=== PATIENT | male | born 1990 | race Caucasian/White ===

== ENCOUNTER 2018-04-28 06:04 | Emergency (ER) | payer BC, OTHER ==
--- NOTE | 2018-04-28 06:13 | EDPHY ---
H & P Stated Complaint: spider bite upper thigh Time Seen by Provider: 04/28/18 06:13 HPI/ROS: HPI CHIEF COMPLAINT: Spider Bite to right Inner thigh. HISTORY OF PRESENT ILLNESS: 28-year-old male, otherwise healthy without any significant medical history does not take any daily medications presents to the emergency room with a spider bite to the right inner thigh. Patient states about 2 hr ago he had a blanket on he immediately felt a stabbing pain to the right upper inner thigh. He looked down and saw a brown looking spider with fangs. He was able to catch the spider in kill that brought in a clear past container to the emergency room. He states that after this spider bit him the wound on the right inner thigh had some pus that came out of it. Denies any significant pain at this time he states the pain is pretty much gone. He now has a erythematous inflamed area 2 cm x 2 cm on the right inner thigh. Denies any abdominal pain chest pain or shortness of breath, denies numbness or tingling, denies fever. He did some research online prior to come to the emergency room is concerned that this is a brown recluse spider bite. Patient reports tetanus shot up-to-date. Past Medical History: Denies any current significant medical history Past Surgical History: Multiple orthopedic surgeries Social History: Denies daily use of drugs alcohol tobacco. Family History: Noncontributory. ROS REVIEW OF SYSTEMS: A comprehensive 10 point review of systems is otherwise negative aside from elements mentioned in the history of present illness. Exam Constitutional triage nursing summary reviewed, vital signs reviewed, awake/ alert. Eyes normal conjunctivae and sclera, EOMI, PERRLA. HENT normal inspection, atraumatic, moist mucus membranes, no epistaxis, neck supple/ no meningismus, no raccoon eyes. Respiratory clear to auscultation bilaterally, normal breath sounds, no respiratory distress, no wheezing. Cardiovascular rate normal, regular rhythm, no murmur, no edema, distal pulses normal. Gastrointestinal soft, non-tender, no rebound, no guarding, normal bowel sounds, no distension, no pulsatile mass. Genitourinary no CVA tenderness. Musculoskeletal no midline vertebral tenderness, full range of motion, no calf swelling, no tenderness of extremities, no meningismus, good pulses, neurovascularly intact. Skin Right Inner Thigh: 2 cm x 2 cm erythematous region with a raised center. No necrosis. No evidence of skin necrosis on exam. No significant discharge or drainage. Neurologic awake, alert and oriented x 3, AAOx3, moves all 4 extremities equally, motor intact, sensory intact, CN II-XII intact, normal cerebellar, normal vision, normal speech. Psychiatric normal mood/affect. Heme/Lymph/Immune no lymphadenopathy. Differential Diagnosis: Includes but is not limited to in a particular order spider bite, localized inflammation from spider bite, penn spider bite, hobo spider, brown recluse spider bite, need for acute wound care Medical Decision Making: Plan for this patient will consult poison Control, most likely placed on Keflex, additionally he will need to watch the area closely for further signs of infection or necrosis of his skin. Re-evaluation: I did examine the spider that he brought in a believed to be a Hobo Spider or Penn Spider. I do not see a violin shape on the back. Nor does the spider have the typical legs of a Brown Recluse. I recommend the patient that he performs cool compresses to the area, additionally takes Keflex as prescribed. He understands watch the wound closely if it starts turning necrotic or appears to have a further signs of infection or worsening wound issue needs return emergency room. He understands this. As of right now he just has some mild erythema local inflammation. Source: Patient - Personal History Current Tetanus Diphtheria and Acellular Pertussis (TDAP): Yes - Medical/Surgical History Hx Asthma: No Hx Chronic Respiratory Disease: No Hx Diabetes: No Hx Cardiac Disease: No Hx Renal Disease: No Hx Cirrhosis: No Hx Alcoholism: No Hx HIV/AIDS: No Hx Splenectomy or Spleen Trauma: No - Social History Smoking Status: Former smoker Constitutional: Initial Vital Signs Temperature (C) 37.1 C 04/28/18 06:08 Heart Rate 82 04/28/18 06:08 Respiratory Rate 20 04/28/18 06:08 Blood Pressure 137/69 H 04/28/18 06:08 O2 Sat (%) 94 04/28/18 06:08 O2 Delivery Mode Room Air Allergies/Adverse Reactions: No Known Allergies Allergy (Unverified 04/28/18 06:08) Home Medications: Medication Instructions Recorded Cephalexin [Keflex] 500 mg PO Q6H #28 cap 04/28/18 Departure - Departure Disposition: Home, Routine, Self-Care Clinical Impression: Spider bite Qualifiers: Encounter type: initial encounter Injury intent: accidental or unintentional Qualified Code(s): T63.301A - Toxic effect of unspecified spider venom, accidental (unintentional), initial encounter Condition: Good Instructions: Insect Bite or Sting (ED) Additional Instructions: 1. Cool compresses. 2. Return to the emergency room if you have worsening pain, swelling, or questions or concerns about her wound. Watch closely. 3. Antibiotics as prescribed. 4. Return emergency room if you have worsening symptoms. Referrals: NONE *PRIMARY CARE P,. [Primary Care Provider] - As per Instructions Prescriptions: Cephalexin [Keflex] 500 mg PO Q6H #28 cap
[2018-04-28 06:14] VITALS: BP 137/69
[2018-04-28] MEDS ORDERED: CEPHALEXIN 500MG PREPACK#4 BTL TAKEHOME ONE (06:41)
[2018-04-28] MEDS ORDERED: CEPHALEXIN 500 MG CAP PO ONE (06:41)
== END 2018-04-28 06:49 | disposition home or self-care (01) ==
DX: T63.301A Toxic effect of unspecified spider venom, accidental (unintentional), initial encounter (principal); Z87.891 Personal history of nicotine dependence